=== PATIENT | male | born 1970 | race African-American/Black ===

== ENCOUNTER 2016-10-18 10:26 | Inpatient (IN) ==
[2016-10-18] MEDS ORDERED: LEVOFLOXACIN INJ 750 MG in PREMIX 1 EACH IV STA (10:44)
[2016-10-18] MEDS ORDERED: SODIUM CHLORIDE 0.9% 1,000 ML IV STA (10:44)
[2016-10-18] MEDS ORDERED: IBUPROFEN 800 MG TABLET PO STA (10:44)
--- NOTE | 2016-10-18 10:50 | Emergency Department Note ---
Arrival - Arrival Chief Complaint: Fever ED Nursing Triage Note: pt went to the clinic yesterday and was given mortin and told to come back friday. pt has dark foul smelling urine and a fever Mode of Arrival: Stretcher Limitations: No Limitations Source: Patient Time Seen by Provider: 10/18/16 10:44 - History of Present Illness HPI Narrative: This 46-year-old black male presents with complaints of shaking chills and fever for 5 days. He was seen and a local clinic yesterday and given aspirin for a viral syndrome and told to come back in 4 days time for check. However, fever has progressed and the patient is concerned of more significant problems then a virus. The patient denies nausea, vomiting, chest pain, shortness of breath, cough, sinus symptoms, dysuria, urgency, frequency, hematuria, diarrhea , headache, or body aches. He does report that his urine has become much darker and has a foul smell to it over the last several days as well. The patient states he is hypertensive but poorly compliant with medication. Of note , the patient is a heavy weekend drinker. Although febrile, he currently appears in no acute medical distress. Onset (ago): day(s) (Patient presents 5 days post onset of symptoms) Allergies/Adverse Reactions: Allergies Allergy/AdvReac Type Severity Reaction Status Date / Time No Known Allergies Allergy Unverified 10/18/16 10:37 Home Medications: Home Medications Medication Instructions Recorded Confirmed Type Ciprofloxacin HCl [Ciprofloxacin 500 mg PO BID 10/18/16 History Tab] Ibuprofen [Ibuprofen] 60 mg PO Q8H PRN 10/18/16 History Mupirocin [Mupirocin 2% Oint] 1 applic TOP BID 10/18/16 History Review of System - Review of System 12 point system: reviewed and no additional remarkable complaints except as stated - Review of System Constitutional: Present: as per HPI Head/Ears/Nose/Throat: Present: see HPI Respiratory: Present: as per HPI Cardiovascular: Present: as per HPI Gastrointestinal: Present: as per HPI Genitourinary male: Present: as per HPI Medical,Surgical,& Family Hx - Social History Smoking Status: Smoker, status unknown Frequency of Alcohol Use: Occasionally Type of Drug Use: None Exam Vital Signs: Vital Signs Temperature 102.2 F H 10/18/16 11:38 Pulse Rate 121 H 10/18/16 10:34 Respiratory Rate 20 09/08/17 10:40 Blood Pressure 205/121 10/18/16 10:34 O2 Sat by Pulse Oximetry 100 10/18/16 10:53 Course Course Narrative: GENERAL: Obese black male in no acute distress. HEENT: Normocephalic. No trauma. Moist mucous membranes. EOMI. PERRLA. ENT NML NECK: Supple. No adenopathy. CARDIAC: Regular. 1/4 faina, loud p2. Heart rate 120 CHEST: Clear to auscultation. No respiratory distress. O2 sat 96% ABDOMEN: Soft. Nontender. Umbilical hernia as well as evidence of possible fluid wave. Distant but active bowel sounds. EXTREMITIES: No trauma. Normal ROM. No pedal edema. SKIN: No diaphoresis. No rash. NEURO: Alert. Oriented 3. Motor, sensory, vibratory intact. No focal deficits. - Reevaluation(s) Reevaluation #1: Advised patient the need for hospitalization. - Consultations Consultation #1: Discussed with the hospitalist service who will admit for further evaluation treatment peer Results - Labs CBC & BMP: 10/18/16 11:56 10/18/16 11:56 Labs: I reviewed the laboratory noted the diffuse abnormalities most significant being the elevated lipase and CK. - Impressions EKG: Sinus tachycardia at 102 with left atrial enlargement. Diffuse ST flattening with T-wave inversion in the inferior leads. No acute injury pattern noted. - Diagnostic Findings Procedure: Chest x-ray: image reviewed by me, report reviewed by me (Minimal right sided atelectatic changes but no acute pathology noted), CT Abdomen and Pelvis: image reviewed by me, report reviewed by me (Fatty liver and umbilical hernia. No obvious pancreatic pathology.) Disposition Clinical Impression: Pancreatitis, Rhabdomyolysis, Abnormal cardiac enzymes, Fever Case discussed with: patient, patient's family Disposition: Still a Patient Condition: Guarded Time of Disposition: 14:27
[2016-10-18] MEDS ORDERED: hydrALAZINE 20 MG/1 ML VIAL IV STA (10:51)
[2016-10-18] MEDS ORDERED: LEVOFLOXACIN INJ 150 ML IV ONE (11:27)
[2016-10-18] MEDS ORDERED: IBUPROFEN 800 MG TABLET ONE (11:27)
[2016-10-18] MEDS ORDERED: hydrALAZINE 20 MG/1 ML VIAL ONE (11:27)
--- NOTE | 2016-10-18 11:30 | XRay Report ---
Exam: XR chest 2V Date: 10/18/2016 10:45 AM Indication: Shortness of breath fever Comparison: None Technical: PA lateral Findings: Mild prominence the cardiac silhouette. Minimal lytic change present. No obvious consolidating infiltrate or effusion clearly seen. The mediastinum is demonstrated with diffuse small calcified nodes present bilaterally no pneumothorax. Impression: 1. Minimal atelectatic change in the right midlung zone 2. No consolidating pulmonary infiltrates present. PROCEDURE INTERPRETED AT [facility] DEPARTMENT OF RADIOLOGY Final Report Signed by: Dr. Kam Coleman
[2016-10-18 12:11] LABS: Basophils % 0.2 % (0.0-0.8); Hematocrit 48.6 VOL% (42.0-52.0); Hemoglobin 15.8 GM/DL (14.0-18.0); Immature Granulocytes % 0.3 %; Immature Granulocytes Absolute 0.04 #; Lymphocytes # 1.3 10*3/uL (1.4-4.0); Lymphocytes % 10.9 % (21.2-54.2); Mean Corpuscular HGB Conc 32.5 GM/DL (32-36); Mean Corpuscular Hemoglobin 20 PG (27-34); Mean Corpuscular Volume 62.6 FL (87-102); Monocytes # 0.9 10*3/uL (0.11-0.8); Monocytes % 7.1 % (1.7-12.7); Neutrophils # 10.1 10*3/uL (1.4-7.4); Neutrophils % 81.5 % (38.7-73.9); Platelet Count 145 T/CUMM (130-400); Red Blood Count 7.76 MC/CUMM (3.8-5.5); Red Cell Distribution Width 18.3 % (9.3-17.3); White Blood Count 12.3 T/CUMM (4-12)
--- NOTE | 2016-10-18 12:17 | EKG Report ---
Stationary ECG Study [facility] ER Test Date: 10/18/2016 12:15:13 PM Pat Name: AUBREY ORTEZ Department: Room: Gender: M Strategic Manager: : 1970 Requested by: Carlos Alberto Urbina Order Number: [id number] Reading MD: GWEN BOOGIE Intervals [place] Rate: 102 P: 55 MS: 120 QRS: 48 QRSD: 78 T: -33 QT: 370 QTc: 429 Interpretive Statements SINUS TACHYCARDIA POSSIBLE LEFT ATRIAL ENLARGEMENT ST DEVIATION AND MODERATE T-WAVE ABNORMALITY, CONSIDER LATERAL ISCHEMIA ST DEVIATION AND MODERATE T-WAVE ABNORMALITY, CONSIDER INFERIOR ISCHEMIA Electronically Signed On 10-18-16 16:10:57 CDT by GWEN BOOGIE [email or web address]
[2016-10-18 12:27] LABS: INR 1.2; PT Patient Result 12.6 SECS
[2016-10-18 12:28] LABS: Giant Platelets Few; Hypochromasia 1+; Ovalocytes Slight; Platelet Estimate Normal
[2016-10-18 12:38] LABS: Ammonia 39 UMOL/L (11-32)
[2016-10-18 12:48] LABS: Lactic Acid 1.7 MMOL/L (0.4-2.0)
[2016-10-18 13:00] LABS: Alanine Aminotransferase 69 U/L (16-61); Albumin 3.6 G/DL (3.4-5.0); Alkaline Phosphatase 128 U/L (45-117); Amylase 76 U/L (25-115); Aspartate Amino Transferase 88 U/L (0-37); Blood Urea Nitrogen 23 MG/DL (7-18); Calcium 8.4 MG/DL (8.5-10.1); Glucose 135 MG/DL (74-106); Osmolality,Calculated 275.1 MOS/KG (273-304); Potassium 3.4 MMOL/L (3.5-5.1); Sodium 135 MMOL/L (136-145); Troponin I Only 0.075 NG/ML (0.00-0.045)
[2016-10-18] MEDS ORDERED: SODIUM CHLORIDE 0.9% 2,000 ML IV STA (13:17)
[2016-10-18] MEDS ORDERED: ONDANSETRON 4 MG/2 ML VIAL IV STA (13:17)
[2016-10-18] MEDS ORDERED: ONDANSETRON 4 MG/2 ML VIAL ONE (13:29)
[2016-10-18 13:53] LABS: Apearance,Urine CLOUDY (Clear); Bilirubin,Urine Negative (Negative); Blood, Urine Large mg/dL (Negative); Glucose,Urine (UA) Negative (Negative); Ketones,Urine Negative (Negative); Mucus,Urine Many /LPF (Occasional); Nitrite,Urine Negative (Negative); Protein,Urine >=500 MG/DL; Urine Color Yellow (Yellow); Urine Specific Gravity 1.029 (1.001-1.035); Urine Urobilinogen < 2.0 EU/DL (0.2-1.0)
--- NOTE | 2016-10-18 14:06 | CT Report ---
Exam: CT abdomen pelvis w con Date: 10/18/2016 1:17 PM Comparison: None Indication: Increased lipase fever Total DLP: 1401.9 mGy*cm Technical: No oral contrast was administered. Images were obtained from the lung bases to the iliac crest continuation through the pelvis with 100 cc of Omnipaque 350 with axial sagittal coronal imaging available for review. Dose reduction was performed with decreasing kv and mA and automated exposure Findings: Lung bases: No obvious infiltrates or effusions present. Liver and Spleen: Minimal fatty infiltration of the liver with mild in homogeneity present. Hepatic and portal veins are patent. Spleen is demonstrated without enlargement with small accessory splenule present. Gallbladder and Pancreas: Partially contracted gallbladder. The pancreas reveals no focal mass present. No ductal dilatation or cystic changes present. Adrenals: Unremarkable Kidneys: Both kidneys are equally perfused and demonstrate no evidence for obstructive uropathy. Stomach: Incomplete distended with air and fluid Retroperitoneum: No enlarged lymph nodes. Aorta and IVC: No obvious aneurysm aorta vessels are demonstrated with minimal atherosclerotic plaque. The IVC is unremarkable. Bowel and Mesentery: Some fluid-filled loops of small and large bowel are present. Fat-containing periumbilical hernia is present. No evidence of diverticulosis or diverticulitis the appendix is air and fluid filled without acute appendicitis. Pelvis: Bladder: Incompletely distended with fluid Fluid: No free fluid identified. Lymph nodes: No enlarged lymph nodes. Pelvic organs: Unremarkable Osseous structures: Degenerative change present at L4-5. The bony pelvis is otherwise intact. Facet arthropathy changes are present. Impression: 1. Fat-containing periumbilical hernia 2. Accessory splenule 3. Minimal fatty infiltration of liver 4. Degenerative spondylosis changes thoracolumbar spine. PROCEDURE INTERPRETED AT [facility] DEPARTMENT OF RADIOLOGY Final Report Signed by: Dr. Kam Coleman
--- NOTE | 2016-10-18 15:36 | Hospitalist History & Physical ---
Assessment and Plan (1) Hypertensive emergency, no CHF Status: Acute Assessment and plan: The patient is admitted hospital with hypertensive emergency, proteinuria, and rhabdomyolysis. The patient will receive aggressive IV hydration and IV antibiotics. We will obtain nephrology consultation. Current Visit: Yes (2) Rhabdomyolysis Status: Acute Current Visit: Yes (3) Proteinuria Status: Acute Current Visit: Yes History of Present Illness Chief complaint: Fever and weakness History of present illness: Mr. Bowman is a 46 year old male who has experienced fever and weakness over the last week. The patient's symptoms were associated with chills. The symptoms were moderate to severe, continuous and are worsening. The patient's fever improved somewhat with ibuprofen. The symptoms are associated with dark urine and muscle aches. The patient denies dysuria. The patient has had abdominal distention and reduced bowel movements. The patient does not complain of abdominal pain. The patient denies angina or shortness of breath. The patient has had some fecal incontinence. I discussed the case with Dr. Bautista in the emergency room we will admit the patient to intensive care unit for treatment of rhabdomyolysis. Home Medications Medication Instructions Recorded Confirmed Type No Known Home Medications [No 10/18/16 10/18/16 History Known Home Medications] Allergies Allergy/AdvReac Type Severity Reaction Status Date / Time No Known Allergies Allergy Unverified 10/18/16 10:37 Medical,Surgical,& Family Hx - Medical History Cardio: History of: Hypertension - Surgical History Surgical History: noncontributory (No previous surgeries) - Social History Smoking Status: Former smoker Have you smoked in the last 12 months: No Time spent discussing smoking cessation with patient: 3 to 10 minutes (4 minutes ) Frequency of Alcohol Use: Occasionally Type of Drug Use: None Marital Status: Lives With:: Spouse Functional capacity: independent ambulation 12 point system: reviewed and no additional remarkable complaints except as stated Exam - Constitutional Vitals: Period Temp Pulse Resp BP Sys/Dean Pulse Ox Last 24 Hr 102.2 F-102.2 F 121-121 20-20 205-205/121-121 96-100 Exam: Constitutional System: Mild distress. No tremulousness. Head: Normocephalic, atraumatic. Ears, Nose and Throat System: No evidence of Otitis or Mastoiditis. No epistaxis or discharge Eyes System: Pupils equal, round, and reactive. Extraocular muscles intact. Neck: Supple, without adenopathy, No jugular venous distention. No thyromegaly , neck mass, or prior surgery apparent. Respiratory System: Chest clear to auscultation. Cardiovascular System: Heart with regular rate and rhythm. No murmur. GI System: Abdomen soft, distended, nontender. Hypo-active bowel sounds present. Musculoskeletal System: limbs with no pedal edema. Full distal pulses. Neurological System: No discernable sensory deficit. No aphasia Psychiatric System: Conversation is rational Capillary Refill: less than 2 sec Results - Labs CBC & BMP: 10/18/16 11:56 10/18/16 11:56 Lab Results: I have reviewed the past 24 hour labs - Diagnostic Findings Procedure: CT Abdomen and Pelvis: report reviewed by me (No intra-abdominal abnormality)
[2016-10-18] MEDS ORDERED: ONDANSETRON 4 MG/2 ML VIAL IV PRN (15:58)
[2016-10-18] MEDS ORDERED: MORPHINE 2 MG/1 ML SYRINGE IV PRN (15:58)
[2016-10-18] MEDS ORDERED: ACETAMINOPHEN 325 MG TABLET PO PRN (15:58)
[2016-10-18] MEDS: niCARdipine INJ 25 MG in SODIUM CHLORIDE 0.9% 240 ML IV SCH ×2 (17:00→22:31)
[2016-10-18] MEDS: SODIUM BICARB INJ 100 MEQ in DEXTROSE 5% 1,000 ML IV SCH (17:00)
--- NOTE | 2016-10-18 17:24 | Event Note ---
Procedure note: Right central venous catheter via internal jugular approach. Indication: Cardene infusion and multiple IV medications Consent obtained from patient and signed consent on chart The patient was placed in the prone position and ultrasound guidance was used to identify the right internal jugular vein. The patient was prepped in a sterile fashion and sterile hand technique was utilized to approach the patient. Gwendolyn Santos nurse practitioner was in attendance to assist and used sterile hand technique. Ultrasound probe was used with sterile technique using plastic sleeve and the right internal jugular vein was entered after appropriate local anesthetic was applied. A 3 lm catheter was placed into the internal jugular vein using modified Seldinger technique. No apparent complications were observed. Chest x-ray was ordered following the procedure.
--- NOTE | 2016-10-18 17:56 | XRay Report ---
History: Central line placement Date: 10/18/2016 at 5:05 PM Study: Chest x-ray AP portable Comparison exam: 10/18/2016 at 10:59 AM The right IJ central line is well positioned with its tip over the atriocaval junction. There is no evidence of pneumothorax. The lungs are grossly clear for shallow breath. The cardiomediastinal silhouette is unchanged. Osseous structures are similar. Impression: No evidence of a pneumothorax following central line placement PROCEDURE INTERPRETED AT [facility] DEPARTMENT OF RADIOLOGY Final Report Signed by: Dr. Keyana Evans
[2016-10-18] MEDS: ENOXAPARIN 40 MG/0.4 ML SYRINGE SUBCUT SCH (18:20)
[2016-10-18] MEDS: cefTRIAXone 1,000 MG in SODIUM CHLORIDE 0.9% 100 ML IV SCH (18:20)
[2016-10-18] MEDS: PANTOPRAZOLE 40 MG TABLET PO SCH (18:20)
[2016-10-18] MEDS: amLODIPine 10 MG TABLET PO SCH (18:20)
[2016-10-19] MEDS: ACETAMINOPHEN 325 MG TABLET PO PRN ×6 (00:55→22:28)
[2016-10-19] MEDS: niCARdipine INJ 25 MG in SODIUM CHLORIDE 0.9% 240 ML IV SCH (04:01)
[2016-10-19] MEDS: SODIUM BICARB INJ 100 MEQ in DEXTROSE 5% 1,000 ML IV SCH ×3 (04:22→15:20)
[2016-10-19 06:10] LABS: Basophils % 0.2 % (0.0-0.8); Hematocrit 45.7 VOL% (42.0-52.0); Hemoglobin 14.8 GM/DL (14.0-18.0); Immature Granulocytes % 0.7 %; Immature Granulocytes Absolute 0.09 #; Lymphocytes # 1.6 10*3/uL (1.4-4.0); Lymphocytes % 11.9 % (21.2-54.2); Mean Corpuscular HGB Conc 32.4 GM/DL (32-36); Mean Corpuscular Hemoglobin 20 PG (27-34); Mean Corpuscular Volume 62.9 FL (87-102); Monocytes # 1.3 10*3/uL (0.11-0.8); Neutrophils % 77.2 % (38.7-73.9); Platelet Count 105 T/CUMM (130-400); Red Blood Count 7.27 MC/CUMM (3.8-5.5); Red Cell Distribution Width 17.4 % (9.3-17.3)
[2016-10-19 06:25] LABS: INR 1.2; PT Patient Result 13.1 SECS
[2016-10-19 06:26] LABS: Lactic Acid 1.2 MMOL/L (0.4-2.0)
[2016-10-19 06:32] LABS: Hypochromasia 1+
[2016-10-19 06:33] LABS: Microcytosis 1+; Ovalocytes Slight; Tear Drop Cells Slight
[2016-10-19 06:34] LABS: Platelet Estimate Decreased
--- NOTE | 2016-10-19 06:47 | Nephrology Consult Note ---
History of Present Illness Chief complaint: Rhabdomyolysis, fever History of present illness: Mr. Bowman is a 46 year old male patient who presents with fever and weakness for the past several days. His temperature got up to 105 through the night. He is now on a cooling blanket with a temperature of 101. Of note patient had been given a prescription for ibuprofen for his discomfort. Patient's CPK was noted to be elevated and had evidence of hematuria and proteinuria. Patient is now on a Cardene infusion due to hypertension through the night. Patient denies any shortness of breath or cough. There is no history of rashes or bruises. He denies any underlying medical conditions. At present he denies any pain or shortness of breath or discomfort. He mentions that he smokes half a pack cigarettes daily. As well as he denies any illicit drugs use. Nephrology is been consulted for renal failure and rhabdomyolysis. Home Medications Medication Instructions Recorded Confirmed Type No Known Home Medications [No 10/18/16 10/18/16 History Known Home Medications] Allergies Allergy/AdvReac Type Severity Reaction Status Date / Time No Known Allergies Allergy Unverified 10/18/16 10:37 Medical,Surgical,& Family Hx - Medical History Cardio: History of: Hypertension - Surgical History Neurologic Surgeries: Patient denies: Neurologic Surgery - Family History Family History: Reports;: Family Cancer (mother) Denies;: Family Anesthesia Reaction, Family Diabetes, Family Heart Disease, Family Hematology, Family Hypertension, Family Psychiatric Problems, Family Stroke, Additional Family History - Social History Smoking Status: Former smoker Frequency of Alcohol Use: Occasionally Type of Drug Use: None Review of Systems Constitutional: fever(s), no anorexia, no lethargy Gastrointestinal: dyspepsia, no cramping, no dysphagia Genitourinary: no difficulty urinating, no dysuria Hematologic/Lymphatic: no easy bleeding Exam - Vital Signs Vital signs: Period Temp Pulse Resp BP Sys/Dean Pulse Ox Last 24 Hr 98.7 F-105.9 F 81-124 18-39 117-205/77-121 93-100 - General Appearance General appearance: well-developed, well-nourished EENT: ATNC Neck: supple Respiratory: clear Cardiology: regular rate, regular rhythm Gastrointestinal: normoactive bowel sounds, no tenderness Integumentary: no rash Neurologic: alert and oriented x3 Musculoskeletal: no deformities, no clubbing Psychiatric: mood/affect appropriate, cooperative Results - Labs CBC & BMP: 10/19/16 05:11 10/18/16 11:56 Assessment and Plan (1) Rhabdomyolysis Status: Acute Assessment and plan: Agree with IV fluids. Continue with serial BMP. Current Visit: Yes (2) Proteinuria Status: Acute Assessment and plan: Complement levels. UPEP Hepatitis panel. MARIAJOSE Rheumatoid factor Anti-GBM antibody Current Visit: Yes (3) Hypertensive emergency, no CHF Status: Acute Current Visit: Yes (4) Hematuria Status: Acute Current Visit: Yes (5) Fever Status: Acute Assessment and plan: We will also check a West Nile Current Visit: Yes (6) Pancreatitis Status: Acute Current Visit: Yes
[2016-10-19 06:55] LABS: Calcium 7.7 MG/DL (8.5-10.1); Magnesium 1.6 MG/DL (1.8-2.4); Osmolality,Calculated 269.2 MOS/KG (273-304); Potassium 3.1 MMOL/L (3.5-5.1)
[2016-10-19] MEDS ORDERED: niCARdipine INJ 50 MG in SODIUM CHLORIDE 0.9% 230 ML IV SCH (07:00)
[2016-10-19 07:17] LABS: Troponin I Only 0.082 NG/ML (0.00-0.045)
--- NOTE | 2016-10-19 07:36 | EKG Report ---
Stationary ECG Study [facility] Test Date: 10/19/2016 7:37:40 AM Pat Name: AUBREY ORTEZ Department: Room: 108 Gender: M Msw: WALKER : 1970 Requested by: Zaheer Barone Order Number: [id number] Reading MD: GWEN BOOGIE Intervals [place] Rate: 112 P: 57 AK: 142 QRS: 34 QRSD: 86 T: -49 QT: 337 QTc: 403 Interpretive Statements SINUS TACHYCARDIA POSSIBLE RIGHT ATRIAL ENLARGEMENT POSSIBLE LEFT ATRIAL ENLARGEMENT ST DEVIATION AND MODERATE T-WAVE ABNORMALITY, CONSIDER LATERAL ISCHEMIA ST DEVIATION AND MODERATE T-WAVE ABNORMALITY, CONSIDER INFERIOR ISCHEMIA Electronically Signed On 10-19-16 12:30:15 CDT by GWEN BOOGIE [email or web address]
[2016-10-19 07:39] LABS: Calcium 7.6 MG/DL (8.5-10.1); Osmolality,Calculated 267.4 MOS/KG (273-304)
[2016-10-19 08:32] LABS: HIV Antigen/Antibody Result Nonreactive (Nonreactive)
[2016-10-19] MEDS ORDERED: MAGNESIUM SULF RIDER 2 GM in PREMIX 1 EACH IV PRN (08:33)
[2016-10-19] MEDS ORDERED: MAGNESIUM SULF RIDER 4 GM in PREMIX 1 EACH IV PRN (08:33)
[2016-10-19 08:37] LABS: Hepatitis A Ab IgM Quant 0.04 Index; Hepatitis A Ab IgM Result Negative (Negative); Hepatitis B Core IgM Quant 0.11 Index; Hepatitis B Core IgM Result Negative (Negative); Hepatitis B Surface Ag Quant < 0.10 Index; Hepatitis B Surface Ag Result Negative (Negative); Hepatitis C Virus Ab Quant 0.05 Index; Hepatitis C Virus Ab Result Negative (Negative)
[2016-10-19] MEDS: POTASSIUM CHLORIDE 20 MEQ TABLET PO SCH ×2 (08:45→22:26)
[2016-10-19] MEDS: PANTOPRAZOLE 40 MG TABLET PO SCH (08:45)
[2016-10-19] MEDS: amLODIPine 10 MG TABLET PO SCH (08:45)
[2016-10-19] MEDS ORDERED: LEVOFLOXACIN INJ 500 MG in PREMIX 1 EACH IV SCH (09:00)
--- NOTE | 2016-10-19 10:26 | XRay Report ---
History: Shortness of breath Date: 10/19/2016 Study: Chest x-ray AP portable Comparison exam: 10/18/2016 The right IJ central line remains in satisfactory position. The cardiomediastinal silhouette and pulmonary vasculature are unremarkable. The lungs and pleural spaces remain clear. Osseous structures are unchanged. Impression: No adverse interval change compared to the previous study PROCEDURE INTERPRETED AT [facility] DEPARTMENT OF RADIOLOGY Final Report Signed by: Dr. Keyana Evans
--- NOTE | 2016-10-19 11:10 | Hospitalist Progress Note ---
Assessment and Plan (1) Hypertensive emergency, no CHF Status: Acute Assessment and plan: The patient is admitted hospital with hypertensive emergency, proteinuria, and rhabdomyolysis. The patient will continue bicarbonate IV hydration and IV antibiotics. We will recheck electrolytes tomorrow and likely discontinue bicarbonate infusion at that time. Potassium is being supplemented. Current Visit: Yes (2) Rhabdomyolysis Status: Acute Current Visit: Yes (3) Proteinuria Status: Acute Current Visit: Yes Hospitalist: Subjective Interval history: Mr. Bowman does not complain of pain. Abdomen soft and less distended today. The patient tolerated breakfast. I coordinated care with Dr. So. Exam - Constitutional Vitals: Period Temp Pulse Resp BP Sys/Dean Pulse Ox Last 24 Hr 98.7 F-105.9 F 81-124 10-39 113-181/67-116 93-100 Exam: Constitutional System: No distress. No tremulousness. Head: Normocephalic, atraumatic. Ears, Nose and Throat System: No evidence of Otitis or Mastoiditis. No epistaxis or discharge Eyes System: Pupils equal, round, and reactive. Extraocular muscles intact. Neck: Supple, without adenopathy, No jugular venous distention. No thyromegaly , neck mass, or prior surgery apparent. Respiratory System: Chest clear to auscultation. Cardiovascular System: Heart with regular rate and rhythm. No murmur. GI System: Abdomen soft, nontender. Hypo-active bowel sounds present. Musculoskeletal System: limbs with no pedal edema. Full distal pulses. Neurological System: No discernable sensory deficit. No aphasia Psychiatric System: Conversation is rational Capillary Refill: less than 2 sec Results - Labs CBC & BMP: 10/19/16 05:11 10/19/16 07:04 Lab Results: I have reviewed the past 24 hour labs
[2016-10-19] MEDS: NIFEdipine 10 MG CAPSULE PO PRN ×2 (11:50→17:50)
[2016-10-19 13:04] LABS: Calcium 7.6 MG/DL (8.5-10.1); Osmolality,Calculated 267.4 MOS/KG (273-304); Potassium 3.2 MMOL/L (3.5-5.1)
[2016-10-19] MEDS ORDERED: LOPERAMIDE 2 MG CAPSULE PO PRN (14:23)
[2016-10-19] MEDS: cefTRIAXone 1,000 MG in SODIUM CHLORIDE 0.9% 100 ML IV SCH (15:30)
[2016-10-19] MEDS: ENOXAPARIN 40 MG/0.4 ML SYRINGE SUBCUT SCH (17:50)
[2016-10-19 19:30] LABS: Calcium 7.3 MG/DL (8.5-10.1); Osmolality,Calculated 267.4 MOS/KG (273-304)
[2016-10-20] MEDS: NIFEdipine 10 MG CAPSULE PO PRN (08:08)
[2016-10-20] MEDS: POTASSIUM CHLORIDE 20 MEQ TABLET PO SCH ×4 (08:09→20:43)
[2016-10-20] MEDS: PANTOPRAZOLE 40 MG TABLET PO SCH (08:09)
[2016-10-20] MEDS: ACETAMINOPHEN 325 MG TABLET PO PRN ×2 (08:10→20:43)
[2016-10-20] MEDS: amLODIPine 10 MG TABLET PO SCH (08:11)
--- NOTE | 2016-10-20 10:51 | Nephrology Progress Note ---
Nephrology - PN: Subj Interval history: Patient is resting comfortably. States he feels better than he did yesterday. However, continues to have temperature spikes. Blood cultures urine cultures have been negative. Renal function is normal. Exam (PN)-Nephrology - Vital Signs Vital signs: Period Temp Pulse Resp BP Sys/Dean Pulse Ox Last 24 Hr 98.0 F-216.7 F 102-117 12-32 131-179/75-101 91-100 - General Appearance General appearance: well-developed, well-nourished EENT: ATNC Neck: supple Respiratory: clear Cardiology: no edema, regular rate, regular rhythm Gastrointestinal: normoactive bowel sounds, no tenderness Neurologic: alert and oriented x3 Musculoskeletal: no clubbing Psychiatric: mood/affect appropriate, cooperative - Lab 10/19/16 05:11 10/19/16 18:32 Most recent lab results Calcium 7.3 MG/DL (8.5-10.1) L 10/19/16 18:32 Magnesium 1.6 MG/DL (1.8-2.4) L 10/19/16 05:11 Assessment and Plan (1) Rhabdomyolysis Status: Acute Assessment and plan: Agree with IV fluids. Continue IV fluids. BMP in a.m. Liver panel in a.m. Current Visit: Yes (2) Proteinuria Status: Acute Assessment and plan: Complement levels. UPEP Hepatitis panel is normal. HIV is negative. MARIAJOSE Rheumatoid factor Anti-GBM antibody Current Visit: Yes (3) Hypertensive emergency, no CHF Status: Acute Current Visit: Yes (4) Hematuria Status: Acute Current Visit: Yes (5) Fever Status: Acute Assessment and plan: No immediate source for fevers. Cultures have been negative. Initial studies have been negative. Recommend consultation with infectious disease on tomorrow. Current Visit: Yes (6) Pancreatitis Status: Resolved Current Visit: Yes
--- NOTE | 2016-10-20 11:17 | Hospitalist Progress Note ---
Assessment and Plan - Time spent with patient Time spent with patient: Less than 30 minutes (1) Rhabdomyolysis Status: Acute Assessment and plan: 46-year-old -[place] male admitted by the hospitalist service on 2016 with hypertensive emergency, proteinuria, and rhabdomyolysis. He is received aggressive IV hydration and IV antibiotics. He has unexplained high fevers up to 103.8 at the highest. This morning he had 102.3. His sodium and potassium are low today. We will switch up his IV fluids and supplement his potassium. His blood pressure is up as well so will evaluate his blood pressure medications. Patient is on daptomycin and Rocephin and will continue these. Will consult infectious disease in the a.m. for evaluation of unexplained fevers. Will check his liver panel and CPK in the a.m. His West Nile is pending. Dr. So from nephrology is also following. Discussed with Dr. Barone. Current Visit: Yes (2) Proteinuria Status: Acute Current Visit: Yes (3) Hypertensive emergency, no CHF Status: Acute Current Visit: Yes (4) Fever Status: Acute Current Visit: Yes Hospitalist: Subjective Interval history: Patient looks and feels well. He states he feels better than he has in a while. He is tolerating a diet urinating and defecating well. Exam - Constitutional Vitals: Period Temp Pulse Resp BP Sys/Dean Pulse Ox Last 24 Hr 98.0 F-216.7 F 102-117 12-32 131-179/75-96 91-100 Exam: 46-year-old -[place] male, no acute distress, alert and oriented Chest clear CV regular rate rhythm Abdomen soft and nontender Extremities no edema Results - Labs CBC & BMP: 10/19/16 05:11 10/19/16 18:32 Lab Results: I have reviewed the past 24 hour labs
[2016-10-20] MEDS: SODIUM CHLORIDE 0.9% 1,000 ML IV SCH ×2 (12:51→23:59)
[2016-10-20] MEDS: LEVOFLOXACIN 500 MG TABLET PO SCH (15:18)
[2016-10-20] MEDS: ENOXAPARIN 40 MG/0.4 ML SYRINGE SUBCUT SCH (18:09)
[2016-10-21] MEDS: SODIUM CHLORIDE 0.9% 1,000 ML IV SCH ×4 (03:37→22:53)
[2016-10-21] MEDS: POTASSIUM CHLORIDE 20 MEQ TABLET PO SCH ×2 (03:38→09:09)
[2016-10-21 07:07] LABS: Calcium 8.3 MG/DL (8.5-10.1); Magnesium 1.9 MG/DL (1.8-2.4); Osmolality,Calculated 264.4 MOS/KG (273-304); Potassium 4.6 MMOL/L (3.5-5.1)
[2016-10-21 07:11] LABS: Troponin I Only 0.026 NG/ML (0.00-0.045)
[2016-10-21 07:26] LABS: Bilirubin,Direct 0.52 MG/DL (0.0-0.20); Bilirubin,Indirect 1.2 MG/DL (0.0-1.0); Bilirubin,Total 1.7 MG/DL (0.2-1.0); Total Protein 6.9 G/DL (6.4-8.3)
[2016-10-21] MEDS: amLODIPine 10 MG TABLET PO SCH (09:08)
[2016-10-21] MEDS: PANTOPRAZOLE 40 MG TABLET PO SCH (09:09)
--- NOTE | 2016-10-21 09:33 | Physician Query Form ---
CLICK EDIT DOCUMENT TO SELECT QUERY ANSWER --> OK --> SIGN Karely Jimenes RN Clinical [employer] Girl W) [phone] (f) [phone] [email or web address] PROVIDERS: Make your selection(s) from the choices in EACH section by typing an "x" and enter comments in the comment section. Please use your independent medical judgment in providing your response. This request does not imply that any particular answer is desired or expected. CLINICAL INDICATORS: (Providers should not edit this section) Based on documentation of "Urine became much darker and has a foul smell to it over last several days" "Heavy weekend drinker" Creatinine from 1.5 to 1.00. Grr form 76 to 136. Monitored with serial lab checks. Treated with NS boluses. Clarify which of the following most accurately represents the patient's renal status: (x ) Acute kidney injury (non-traumatic) ( ) Acute renal failure ( ) Acute renal failure with underlying Chronic Kidney Disease (CKD) - please provide stage below ( ) Acute renal failure with pathological renal lesion ( ) Acute renal failure with necrosis ( ) tubular ( ) medullary ( ) cortical ( ) CKD - please provide stage below ( ) End Stage Renal Disease ( ) Acute interstitial nephritis ( ) Hepatorenal syndrome ( ) Other, please specify: ( ) Clinically unable to determine Chronic Kidney Disease Stages Source: National Kidney Disease Foundation ( ) Stage I (eGFR > or = 90) ( ) Stage II (eGFR 60 - 89) ( ) Stage III (eGFR 30 - 59) ( ) Stage IV (eGFR 15 - 29) ( ) Stage V (eGFR < 15 or dialysis) COMMENTS: PLEASE ALSO DOCUMENT RESPONSE IN PROGRESS NOTES AND/OR DISCHARGE SUMMARY Use of terms such as suspected, likely, or probable (associated with a specific diagnosis that is being evaluated, monitored, or treated as if it exists) are acceptable and can be restated in the discharge summary if not ruled out. MTDD
[2016-10-21] MEDS ORDERED: POTASSIUM CHLORIDE 20 MEQ TABLET PO PRN (09:51)
--- NOTE | 2016-10-21 14:21 | Nephrology Progress Note ---
Nephrology - PN: Subj Interval history: Patient is resting comfortably. States he feels better than he did yesterday. However, continues to have temperature spikes. Blood cultures urine cultures have been negative. Renal function is normal. 10/21/2016. The patient is resting comfortably. No acute changes. No fevers or chills. Patient serum creatinine is normal at 0.8. No new recommendations will sign off please call if needed. Exam (PN)-Nephrology - Vital Signs Vital signs: Period Temp Pulse Resp BP Sys/Dean Pulse Ox Last 24 Hr 97.1 F-101.3 F 87-112 16-22 143-157/72-97 91-100 - General Appearance General appearance: well-developed, well-nourished EENT: ATNC Cardiology: regular rate, regular rhythm Gastrointestinal: normoactive bowel sounds Neurologic: alert and oriented x3 Musculoskeletal: no deformities Psychiatric: mood/affect appropriate - Lab 10/19/16 05:11 10/21/16 06:17 Most recent lab results Calcium 8.3 MG/DL (8.5-10.1) L 10/21/16 06:17 Magnesium 1.9 MG/DL (1.8-2.4) 10/21/16 06:17 Assessment and Plan (1) Rhabdomyolysis Status: Acute Assessment and plan: Agree with IV fluids. And is continuing to show resolution. Current Visit: Yes (2) Proteinuria Status: Acute Assessment and plan: Appears to be more likely due to underlying rhabdomyolysis that is resolving. Moreover kidney function is improving. Current Visit: Yes (3) Hypertensive emergency, no CHF Status: Acute Current Visit: Yes (4) Hematuria Status: Acute Current Visit: Yes (5) Fever Status: Acute Assessment and plan: More likely a drug fever as patient has not had any other fevers since stopping antibiotics. Cultures have been negative. Initial studies have been negative. Current Visit: Yes (6) Pancreatitis Status: Resolved Current Visit: Yes
--- NOTE | 2016-10-21 14:42 | Infectious Disease Consult ---
Assessment and Plan (1) Fever Status: Acute Assessment and plan: Suspect viral cause. He has no focus of bacterial infection including no pneumonia, no UTI, no bloodstream infection. He does have thrombocytopenia today and that could be with viral illnesses including West Nile virus. Rickettsial illnesses could cause this as well but patient seems to have defervesced without specific treatment for rickettsial infections. Recommendations: 1. Check West Nile virus serologies 2. Discontinue daptomycin 3. Can continue levofloxacin for now although I am inclined to stop it 4. If fever recurs over the next 24 hours, we will send rickettsial serologies and put patient on doxycycline Thank you very much for the consult. Will follow. Discussed with at bedside Current Visit: Yes (2) Hypertensive emergency, no CHF Status: Acute Current Visit: Yes (3) Rhabdomyolysis Status: Acute Current Visit: Yes History of Present Illness Chief complaint: Fever History of present illness: Mr. Bowman is a 46 year old male who had no malaise known medical history prior to admission to hospital. He is well until about a week ago when he started having chills body aches and fever. He thought he was having the flu however he continued to worsen and so his encouraged him to come to the hospital tonight she called ambulance for him. He never had any sore throat runny nose cough or sputum production. He was anorexic but now his appetite is good. No nausea vomiting or diarrhea. Patient's main problem has been soreness and weakness however that has improved somewhat. On admission was found to have rhabdomyolysis with total CPK more than 1000. He has been persistently febrile but may have defervesced since last night. He was getting ceftriaxone but that was stopped yesterday after it was felt that it may have been causing the fever. The ceftriaxone was replaced with daptomycin which she started this morning. Patient also levofloxacin. I am asked to assist with management. Of note the patient has not traveled recently and will contacts. He denied exposures to insects including mosquitoes and ticks. He drives a dump truck. Home Medications Medication Instructions Recorded Confirmed Type No Known Home Medications [No 10/18/16 10/18/16 History Known Home Medications] Allergies Allergy/AdvReac Type Severity Reaction Status Date / Time No Known Allergies Allergy Unverified 10/18/16 10:37 12 point system: reviewed and no additional remarkable complaints except as stated (Per HPI) Medical,Surgical,& Family Hx - Medical History Cardio: History of: Hypertension - Surgical History Neurologic Surgeries: Patient denies: Neurologic Surgery - Family History Family History: Reports;: Family Cancer (mother) Denies;: Family Anesthesia Reaction, Family Diabetes, Family Heart Disease, Family Hematology, Family Hypertension, Family Psychiatric Problems, Family Stroke, Additional Family History - Social History Smoking Status: Former smoker Frequency of Alcohol Use: Occasionally Type of Drug Use: None Infectious Disease Exam H&P - Constitutional Vitals: Vital Signs Temp Pulse Resp BP Pulse Ox 97.7 F 88 20 157/96 97 10/21/16 11:56 10/21/16 11:56 10/21/16 11:56 10/21/16 11:56 10/21/16 11:56 Intake and Output 10/20/16 10/21/16 10/21/16 23:59 07:59 15:59 Intake Total 1660 / 1660 1120 / 1120 1360 / 1360 Output Total 300 / 300 500 / 500 250 / 250 Balance 1360 / 1360 620 / 620 1110 / 1110 Intake: IV 1100 / 1100 1000 / 1000 1000 / 1000 Cubicin 500 mg In Ns 100 100 / 100 ml @ 200 mls/hr IV Q24H TARAN Rx#:[id number] Ns 1,000 ml @ 150 mls/hr 1000 / 1000 1000 / 1000 1000 / 1000 IV .[id number] TARAN Rx#: [id number] Oral 560 / 560 120 / 120 360 / 360 Output: Urine 300 / 300 500 / 500 250 / 250 Stool 0 / 0 Other: Voiding Method Urinal Urinal # Bowel Movements 1 Weight 106.277 kg Patient Weight 10/21/16 23:59 Weight 106.277 kg Exam: General: Patient looks a bit unwell to me, but insisted he felt fine and was only tired because he did not get sleep last night HEENT: Mucous membranes pink and moist, anicteric acyanotic, HAZEL, no oropharyngeal exudates Neck: Supple, no thyroid gland enlargement, no lymphadenopathy Respiratory system: Breath sounds vesicular, no crepitations or wheezes Cardiovascular: Normal S1 and S2, no murmurs appreciated Abdomen: Normal bowel sounds, soft nontender throughout, no organomegaly or mass Genitourinary: No suprapubic pain or bladder distention Extremities: no edema Skin: No rash Reports - Labs CBC & BMP: 10/19/16 05:11 10/21/16 06:17 Labs: Laboratory Results - last 24 hr 10/19/16 10/21/16 10/21/16 07:04 06:17 06:17 Sodium 133 L Potassium 4.6 Chloride 103 Carbon Dioxide 22 Anion Gap 12.6 BUN 10 Creatinine 0.80 GFR Calculation 162 BUN/Creatinine Ratio 12.00 Glucose 93 Calculated Osmolality 264.4 L Calcium 8.3 L Magnesium 1.9 Total Bilirubin Direct Bilirubin Indirect Bilirubin AST ALT Alkaline Phosphatase Total Creatine Kinase 464 H D Troponin I 0.026 Total Protein Albumin MARIAJOSE Screen Negative (<1:160) 10/21/16 06:17 Sodium Potassium Chloride Carbon Dioxide Anion Gap BUN Creatinine GFR Calculation BUN/Creatinine Ratio Glucose Calculated Osmolality Calcium Magnesium Total Bilirubin 1.70 H Direct Bilirubin 0.520 H Indirect Bilirubin 1.2 H AST 98 H ALT 91 H Alkaline Phosphatase 93 Total Creatine Kinase Troponin I Total Protein 6.9 Albumin 3.0 L MARIAJOSE Screen - Reports Microbiology: Microbiology 10/18/16 11:45 Blood Culture - Preliminary Blood No growth at 3 days 10/18/16 11:45 Blood Culture - Preliminary Blood No growth at 3 days 10/18/16 17:46 Urine Culture - Final Urine,Clean Catch No Growth at 48 hours. 10/18/16 16:00 MRSA Surveillance Culture - Final Nares - Both Nares (Mrsa screen) No MRSA isolated. - Diagnostic Findings Procedure: Chest x-ray: image reviewed by me, report reviewed by me (No consultation or effusion), CT Abdomen and Pelvis: report reviewed by me ( Unremarkable study)
--- NOTE | 2016-10-21 15:21 | Hospitalist Progress Note ---
Hospitalist: Subjective Interval history: Patient was admitted with fever and rhabdomyolysis, both have improved Exam - Constitutional Vitals: Period Temp Pulse Resp BP Sys/Dean Pulse Ox Last 24 Hr 97.1 F-101.3 F 87-112 16-22 143-157/72-97 91-100 Exam: General: [No Acute Distress] HEENT: [Normocephalic, atraumatic, Extra ocular movements intact] Neck: [Supple, No JVD] Chest: [Clear to auscultation B/L] CV: [S1 + S2 audible without murmur, gallop or rub] Abd: [soft, NT, Non-distended, BS +] Ext: [No edema] Skin: [No purpura, bruising or rash] Rheumatologic: [No Joint deformities] Neurologic: [Strength 5/5 all extremities, no gross sensory deficits] Results - Labs CBC & BMP: 10/19/16 05:11 10/21/16 06:17 - Impressions Assessment and Plan: Fever Status: Acute Current Visit: Yes Seen by ID and felt to be due to a viral illness, West Nile serologies were ordered Rhabdomyolysis Status: Acute Assessment and plan: CPK has improved Current Visit: Yes Essential hypertension Status: Acute Current Visit: Yes Hematuria and proteinuria Status: Acute Current Visit: Yes Nephrology is following
[2016-10-21] MEDS: ENOXAPARIN 40 MG/0.4 ML SYRINGE SUBCUT SCH (16:06)
[2016-10-21] MEDS: LISINOPRIL 10 MG TABLET PO SCH (16:07)
[2016-10-21] MEDS: LEVOFLOXACIN 500 MG TABLET PO SCH (16:07)
[2016-10-21] MEDS ORDERED: DAPTOmycin 500 MG in SODIUM CHLORIDE 0.9% 50 ML IV SCH (18:00)
[2016-10-22] MEDS: SODIUM CHLORIDE 0.9% 1,000 ML IV SCH ×3 (05:47→19:15)
[2016-10-22 09:20] LABS: Basophils # 0.1 10*3/uL (0.0-0.2); Basophils % 0.6 % (0.0-0.8); Eosinophils # 0.3 10*3/uL (0.0-0.87); Hematocrit 41.5 VOL% (42.0-52.0); Hemoglobin 13.3 GM/DL (14.0-18.0); Immature Granulocytes % 0.6 %; Immature Granulocytes Absolute 0.06 #; Lymphocytes # 1.2 10*3/uL (1.4-4.0); Lymphocytes % 12.2 % (21.2-54.2); Mean Corpuscular Hemoglobin 21 PG (27-34); Mean Corpuscular Volume 63.9 FL (87-102); Monocytes # 0.8 10*3/uL (0.11-0.8); Monocytes % 7.9 % (1.7-12.7); Neutrophils # 7.6 10*3/uL (1.4-7.4); Neutrophils % 75.7 % (38.7-73.9); Platelet Count 123 T/CUMM (130-400); Red Blood Count 6.49 MC/CUMM (3.8-5.5); Red Cell Distribution Width 15.8 % (9.3-17.3)
[2016-10-22] MEDS: PANTOPRAZOLE 40 MG TABLET PO SCH (09:24)
[2016-10-22] MEDS: LISINOPRIL 10 MG TABLET PO SCH (09:24)
[2016-10-22] MEDS: amLODIPine 10 MG TABLET PO SCH (09:24)
[2016-10-22 09:52] LABS: Calcium 8.4 MG/DL (8.5-10.1); Osmolality,Calculated 266.2 MOS/KG (273-304); Potassium 4.2 MMOL/L (3.5-5.1)
[2016-10-22] MEDS ORDERED: LISINOPRIL 10 MG TABLET PO SCH (10:58)
--- NOTE | 2016-10-22 15:36 | Hospitalist Progress Note ---
Hospitalist: Subjective Interval history: Patient was admitted with rhabdomyolysis. He is awake alert and comfortable Exam - Constitutional Vitals: Period Temp Pulse Resp BP Sys/Dean Pulse Ox Last 24 Hr 97.1 F-99.0 F 82-92 18-20 128-154/86-97 20-98 Exam: General: [No Acute Distress] HEENT: [Normocephalic, atraumatic, Extra ocular movements intact] Neck: [Supple, No JVD] Chest: [Clear to auscultation B/L] CV: [S1 + S2 audible without murmur, gallop or rub] Abd: [soft, NT, Non-distended, BS +] Ext: [No edema] Skin: [No purpura, bruising or rash] Rheumatologic: [No Joint deformities] Neurologic: [Strength 5/5 all extremities, no gross sensory deficits] Results - Labs CBC & BMP: 10/22/16 08:40 10/22/16 08:40 - Impressions Assessment and Plan: Fever Status: Acute Current Visit: Yes Seen by ID and felt to be due to a viral illness, West Nile serologies were ordered. Fever has improved Rhabdomyolysis Status: Acute Assessment and plan: CPK has improved Current Visit: Yes Essential hypertension Status: Acute Current Visit: Yes Hematuria and proteinuria Status: Acute Current Visit: Yes This was evaluated by nephrology
[2016-10-22] MEDS: LEVOFLOXACIN 500 MG TABLET PO SCH (16:04)
[2016-10-22] MEDS: ENOXAPARIN 40 MG/0.4 ML SYRINGE SUBCUT SCH (16:05)
--- NOTE | 2016-10-22 16:15 | Infectious Disease Progress ---
Assessment and Plan (1) Fever Status: Acute Assessment and plan: Suspect viral cause. He has no focus of bacterial infection including no pneumonia, no UTI, no bloodstream infection. Recommendations: Can complete 5 days of empiric levofloxacin therapy, and follow -up with West Nile serologies in outpatient setting. I will sign off now. Call again as needed. Current Visit: Yes (2) Hypertensive emergency, no CHF Status: Acute Current Visit: Yes (3) Rhabdomyolysis Status: Acute Current Visit: Yes Infectious Disease - PN: Subj Interval history: Patient says he is feeling good, he has not had any recurrence of fever for almost 48 hours. Says his appetite is good no nausea vomiting or diarrhea, no cough or shortness of breath. Infectious Disease Exam (PN) - Constitutional Vitals: Temp Pulse Resp BP Pulse Ox 97.7 F 93 H 20 145/92 98 10/22/16 15:45 10/22/16 15:45 10/22/16 15:45 10/22/16 15:45 10/22/16 15:45 Exam: General appearance: no acute distress - Eye Eye exam: Present: EOMI. no icterus Pupils: Present: HAZEL - ENT ENT exam: no oral exudates - Respiratory Respiratory exam: vesicular BS, no crepitations or wheezes - Cardiovascular Cardiovascular exam: regular rate and rhythm, no murmurs - GI/Abdominal GI/Abdominal exam: normal bowel sounds, soft, non-tender, no organomegaly or mass - Extremities Exam Extremities exam: no edema - Skin Skin exam: no rash Results - Labs CBC & BMP: 10/22/16 08:40 10/22/16 08:40 Lab Results: I have reviewed the past 24 hour labs
[2016-10-23] MEDS: SODIUM CHLORIDE 0.9% 1,000 ML IV SCH (01:50)
[2016-10-23 08:44] VITALS: BP 134/86
[2016-10-23] MEDS: amLODIPine 10 MG TABLET PO SCH (09:23)
[2016-10-23] MEDS: PANTOPRAZOLE 40 MG TABLET PO SCH (09:24)
--- NOTE | 2016-10-23 09:59 | Discharge Summary ---
<Gwendolyn Santos - Last Filed: 10/23/16 09:32> Hospital Course - Hospital Course Hospital Course: Mr Bowman w/PMHx hypertension presented to the ED on 10/18/16 for further evaluation of fever and chills x5 days, and with heavy weekend drinker yasy. IN ED: LABS SIGnificant for: WBC 12.3, BUN 23, Creatinine 1.50, Glucose 135, AST 88, ALT 89, Alkaline Phosphatase 128, Ammonia 39, CPK >1000, CXR: no infiltrates, minimal atelectatic changes. Abd/Pelvic CT: fat-containing periumbilical hernia, accessory splenule, mininmal fatty infiltrate of liver. Hospital Medicine consulted for admission for treatment of hypertensive emergency, proteinuria, and rhabdomyolysis, Central line placed, IV hydrations and antibiotics started, consulted nephrology who did extensive workup for proteinuria, and then signed off. Nephrology noted with hydration, renal function greatly improved and no further recommendations were made. Infectious disease consulted: suspects cause of illness to be viral related; Flu is negative. hepatitis panel negative. Hiv negative. Recommended to complete 5 days of empiric levofloxacin therapy and follow up with Infectious Disease for West Nile serology results in outpatient setting. Today 10/23/16 Patients symptoms have improved. Fever and rhabdomyolysis have resolved. Rhabdomyolysis was likely the complication from fever from viral illness that has resolved, repeat labs have improved. He is feeling better and he is stable and has met the criteria for the plan of discharge home. West Nile serology has been negative he will need to follow up with primary care physician. Patient was not taking any medicines at home. He also had hypertensive urgency with significantly elevated blood pressure. His blood pressure is now controlled on medicine which she will continue after discharge. The patient has reached maximal hospital benefit and being discharged home in improved and stable condition. Total discharge time 43 minutes. Discharge Plan - Discharge Medications New amLODIPine [Norvasc] 10 mg PO DAILY #30 tablet Lisinopril [Prinivil] 15 mg PO DAILY #30 tablet - Follow Up or Referral - Forms/Instructions Exam - Constitutional Vitals: Period Temp Pulse Resp BP Sys/Dean Pulse Ox Last 24 Hr 97.1 F-98.7 F 80-93 16-20 134-157/86-92 94-100 Discharge Results Procedures and tests throughout hospitalization: Pending Orders 10/21/16 14:53 West Nile Virus Ab,IgG/M, S Stat Labs on day of discharge: Labs from last 24 hours 10/19/16 10/19/16 07:04 07:04 Glomerular Base Mem IgG < 0.2 West Nile RNA (RT-PCR) Negative DS: Provider Date of admission: 10/18/16 14:39 Primary care physician: . No PCP Attending physician on admission: Zaheer Barone MD Consults: 10/18/16 15:58 Consult to Physician [CONS] Routine Comment: severe hypertension with proteinuria Consulting Provider: Sameer So Jr. 10/20/16 11:16 Consult to Physician [CONS] Routine Comment: fever, rhabdo Consulting Provider: Mable Hall When should Consulting Provider be notified: In am Person Notified: Soila Date Notified: 10/21/16 Time Notified: 09:10 Discharging clinician: Gwendolyn Santos NP <Kellie Matias - Last Filed: 10/23/16 12:24> Hospital Course - Time spent with patient Time with patient DS: Greater than 30 minutes Discharge Plan - Discharge Data Condition at Discharge: Stable Discharge Diet: advance to your usual diet, low salt diet Activity: resume usual activities as tolerated Hygiene: no restrictions Weight Bearing at Discharge: full weight bearing Contact your physician if you experience:: fever over 101 Exam - Constitutional Exam: General: No Acute Distress HEENT: Normocephalic, atraumatic, Extra ocular movements intact Neck: Supple, No JVD Chest: Clear to auscultation B/L CV: S1 + S2 audible without murmur, gallop or rub Abd: soft, NT, Non-distended, BS + Ext: No edema Skin: No purpura, bruising or rash Rheumatologic: No Joint deformities Neurologic: Strength 5/5 all extremities, no gross sensory deficits
== END 2016-10-23 13:56 | disposition home or self-care (01) | DRG 557 ==
LOC: N.ED 10:26 → SUATTDRO 14:39 → N.EDINP 14:39 → N.ICU 15:45 → N.5E 10-19 18:33
PROVIDERS: ADMIT Internal Medicine; ATTEND Hospitalist

== ENCOUNTER 2021-08-28 05:55 | Inpatient (IN) ==
[2021-08-28] MEDS ORDERED: propofoL 200 MG/20 ML VIAL IV ONE ×2 (06:21→08:20)
[2021-08-28] MEDS ORDERED: fentaNYL 100 MCG/2 ML VIAL ONE ×2 (06:21→08:49)
[2021-08-28] MEDS ORDERED: LIDOCAINE 2% 5 ML VIAL ONE (06:21)
[2021-08-28] MEDS ORDERED: ROCURONIUM 50 MG/5 ML VIAL IV ONE ×2 (06:21→08:46)
[2021-08-28] MEDS ORDERED: MIDAZOLAM 2 MG/2 ML VIAL ONE (06:21)
[2021-08-28] MEDS ORDERED: cefTRIAXone 1,000 MG in SODIUM CHLORIDE 0.9% 100 ML IV ONE (06:30)
[2021-08-28] MEDS ORDERED: ALVIMOPAN 12 MG CAPSULE PO ONE (06:30)
[2021-08-28] MEDS ORDERED: BUPIVACAINE MPF 0.5% 30 ML VIAL ONE (06:32)
[2021-08-28] MEDS ORDERED: LIDOCAINE 1% 5 ML VIAL ONE (06:32)
[2021-08-28] MEDS ORDERED: ROPIVACAINE 0.5% 30 ML VIAL ONE (06:46)
[2021-08-28] MEDS ORDERED: LACTATED RINGERS 1,000 ML IV SCH (07:00)
[2021-08-28] MEDS ORDERED: SEVOFLURANE 1 UNIT/15 MINUTE INH ONE (08:07)
[2021-08-28] MEDS ORDERED: GLYCOPYRROLATE 0.4 MG/2 ML VIAL ONE ×2 (08:07→09:07)
[2021-08-28] MEDS ORDERED: PHENYLEPHRINE 1 MG/10 ML SYRINGE IV ONE (08:18)
[2021-08-28 08:20] LABS: Bacteria,Urine Occasional /HPF (Few); Bilirubin,Urine Negative (Negative); Blood, Urine Trace mg/dL (Negative); Glucose,Urine (UA) Negative (Negative); Ketones,Urine Negative (Negative); Nitrite,Urine Negative (Negative); Protein,Urine Negative (Negative); RBC,Urine 4 /HPF (0-4); Squamous Epithelial Cell,Urine Occasional /HPF (0-10); Urine Appearance Clear (Clear); Urine Color Yellow (Yellow); Urine Specific Gravity 1.025 (1.001-1.035)
[2021-08-28] MEDS ORDERED: LACTATED RINGERS 1,000 ML IV ONE (08:28)
[2021-08-28] MEDS ORDERED: NEOSTIGMINE 10 MG/10 ML VIAL ONE (09:06)
[2021-08-28] MEDS ORDERED: ONDANSETRON 4 MG/2 ML VIAL ONE (09:15)
[2021-08-28] MEDS ORDERED: DESFLURANE 1 UNIT/15 MINUTE INH ONE (09:22)
[2021-08-28] MEDS ORDERED: ONDANSETRON 4 MG/2 ML VIAL IV PRN ×2 (09:57→10:22)
[2021-08-28] MEDS ORDERED: HYDROmorphone 1 MG/1 ML SYRINGE IV PRN ×2 (09:57→10:22)
[2021-08-28] MEDS ORDERED: PROMETHAZINE 25 MG/1 ML VIAL IM PRN (09:57)
[2021-08-28] MEDS ORDERED: oxyCODONE/ACETAMINOPHEN 5-325 MG TABLET PO PRN (09:57)
[2021-08-28] MEDS ORDERED: SIMETHICONE CHEW 125 MG TABLET PO PRN (09:57)
[2021-08-28] MEDS ORDERED: diphenhydrAMINE 50 MG/1 ML VIAL IV PRN ×2 (09:57→10:22)
[2021-08-28] MEDS ORDERED: GLUCAGON 1 MG VIAL IM PRN (10:01)
[2021-08-28] MEDS ORDERED: DEXTROSE 10% 250 ML BAG IV PRN (10:01)
[2021-08-28] MEDS ORDERED: PROMETHAZINE INJ 25 MG in SODIUM CHLORIDE 0.9% 50 ML IV PRN (10:22)
[2021-08-28] MEDS ORDERED: MEPERIDINE 25 MG/1 ML VIAL IV PRN (10:22)
[2021-08-28] MEDS: cefTRIAXone 1,000 MG in SODIUM CHLORIDE 0.9% 100 ML IV SCH (10:36)
[2021-08-28] MEDS: ACETAMINOPHEN 325 MG TABLET PO SCH ×3 (10:37→21:08)
[2021-08-28] MEDS: SODIUM CHLORIDE 0.9% 1,000 ML IV SCH ×2 (10:42→20:28)
[2021-08-28 10:53] LABS: Basophils % 0.4 % (0.0-0.8); Eosinophils # 0.1 10*3/uL (0.0-0.87); Eosinophils % 0.8 % (0.00-10.9); Hematocrit 35.7 VOL% (42.0-52.0); Hemoglobin 10.7 GM/DL (14.0-18.0); Immature Granulocytes % 0.4 %; Immature Granulocytes Absolute 0.04 #; Lymphocytes # 1.7 10*3/uL (1.4-4.0); Lymphocytes % 15.6 % (21.2-54.2); Mean Corpuscular Volume 68.8 FL (87-102); Mean Platelet Volume 10.2 FL (9.6-12.0); Monocytes # 0.7 10*3/uL (0.11-0.8); Monocytes % 6.2 % (1.7-12.7); Neutrophils % 76.6 % (38.7-73.9); Platelet Count 196 T/CUMM (130-400); Red Blood Count 5.19 MC/CUMM (3.8-5.5); Red Cell Distribution Width 15.7 % (9.3-17.3)
[2021-08-28 11:12] LABS: Calcium 8.8 MG/DL (8.5-10.1); Osmolality,Calculated 284.8 MOS/KG (273-304); Potassium 4.9 MMOL/L (3.5-5.1)
[2021-08-28] MEDS: INSULIN REGULAR 100 UNIT/ML SUBCUT SCH ×3 (12:35→20:27)
[2021-08-28] MEDS ORDERED: MAGNESIUM SULF RIDER 4 GM/100 ML PREMIX IV PRN (13:40)
[2021-08-28] MEDS ORDERED: MAGNESIUM SULF RIDER 2 GM/50 ML PREMIX IV PRN (13:40)
[2021-08-28] MEDS ORDERED: guaiFENesin 200 MG/10 ML UDCUP PO PRN (15:17)
[2021-08-28 16:08] LABS: Hematocrit 33.8 VOL% (42.0-52.0); Hemoglobin 10.4 GM/DL (14.0-18.0)
[2021-08-28] MEDS: ALVIMOPAN 12 MG CAPSULE PO SCH (20:28)
[2021-08-28] MEDS: DOCUSATE SODIUM 100 MG CAPSULE PO SCH (20:28)
[2021-08-29 00:30] LABS: Hematocrit 32.8 VOL% (42.0-52.0); Hemoglobin 10.1 GM/DL (14.0-18.0)
[2021-08-29] MEDS: ACETAMINOPHEN 325 MG TABLET PO SCH ×4 (03:16→21:03)
[2021-08-29 06:13] LABS: Basophils % 0.3 % (0.0-0.8); Eosinophils # 0.1 10*3/uL (0.0-0.87); Eosinophils % 1.5 % (0.00-10.9); Hematocrit 33.2 VOL% (42.0-52.0); Hemoglobin 10.2 GM/DL (14.0-18.0); Immature Granulocytes % 0.4 %; Immature Granulocytes Absolute 0.04 #; Lymphocytes # 1.4 10*3/uL (1.4-4.0); Lymphocytes % 15.3 % (21.2-54.2); Mean Corpuscular HGB Conc 30.7 GM/DL (32-36); Mean Corpuscular Volume 68.2 FL (87-102); Mean Platelet Volume 11.3 FL (9.6-12.0); Monocytes % 11.4 % (1.7-12.7); Neutrophils % 71.1 % (38.7-73.9); Platelet Count 197 T/CUMM (130-400); Red Blood Count 4.87 MC/CUMM (3.8-5.5); Red Cell Distribution Width 15.6 % (9.3-17.3)
[2021-08-29 06:28] LABS: % Iron Saturation 20.5 % (18-50)
[2021-08-29 06:29] LABS: Calcium 8.9 MG/DL (8.5-10.1); Osmolality,Calculated 277.8 MOS/KG (273-304); Potassium 4.1 MMOL/L (3.5-5.1)
[2021-08-29 06:42] LABS: Risk Ratio 3.36; Thyroid Stimulating Hormone 0.627 uIU/ml (0.358-3.74); VLDL Cholesterol 26.4 MG/DL
[2021-08-29 06:44] LABS: Folate 5.16 NG/ML (5.38-24.0)
[2021-08-29] MEDS: INSULIN REGULAR 100 UNIT/ML SUBCUT SCH ×4 (07:35→21:11)
[2021-08-29] MEDS: ALVIMOPAN 12 MG CAPSULE PO SCH ×2 (08:12→21:04)
[2021-08-29] MEDS: DOCUSATE SODIUM 100 MG CAPSULE PO SCH ×2 (08:13→21:04)
[2021-08-29] MEDS: BISOPROLOL 5 MG TABLET PO SCH (08:13)
[2021-08-29] MEDS: amLODIPine 10 MG TABLET PO SCH (08:13)
[2021-08-29] MEDS: cefTRIAXone 1,000 MG in SODIUM CHLORIDE 0.9% 100 ML IV SCH (09:28)
[2021-08-29] MEDS: FERROUS SULFATE 325 MG TABLET PO SCH (16:23)
[2021-08-29] MEDS ORDERED: FOLIC ACID 1 MG TABLET PO SCH (21:00)
[2021-08-30] MEDS: ACETAMINOPHEN 325 MG TABLET PO SCH ×2 (04:17→09:01)
[2021-08-30 06:05] LABS: Basophils % 0.3 % (0.0-0.8); Eosinophils # 0.2 10*3/uL (0.0-0.87); Eosinophils % 2.1 % (0.00-10.9); Hematocrit 35.9 VOL% (42.0-52.0); Immature Granulocytes % 0.4 %; Immature Granulocytes Absolute 0.04 #; Lymphocytes # 1.5 10*3/uL (1.4-4.0); Lymphocytes % 16.4 % (21.2-54.2); Mean Corpuscular HGB Conc 30.6 GM/DL (32-36); Mean Corpuscular Volume 67.7 FL (87-102); Mean Platelet Volume 11.3 FL (9.6-12.0); Neutrophils % 69.8 % (38.7-73.9); Platelet Count 189 T/CUMM (130-400); Red Cell Distribution Width 15.4 % (9.3-17.3); White Blood Count 9.2 T/CUMM (4-12)
[2021-08-30] MEDS: SODIUM CHLORIDE 0.9% 1,000 ML IV SCH (06:17)
[2021-08-30 06:24] LABS: Calcium 9.4 MG/DL (8.5-10.1); Osmolality,Calculated 273.1 MOS/KG (273-304); Potassium 4.4 MMOL/L (3.5-5.1)
[2021-08-30 06:25] LABS: Calcium 9.2 MG/DL (8.5-10.1); Potassium 4.2 MMOL/L (3.5-5.1)
[2021-08-30 06:34] LABS: Hypochromia 1+; Microcytosis 1+
[2021-08-30 06:35] LABS: Platelet Estimate Normal
[2021-08-30] MEDS: INSULIN REGULAR 100 UNIT/ML SUBCUT SCH ×2 (07:51→11:24)
[2021-08-30] MEDS ORDERED: CHOLECALCIFEROL 1,000 UNIT TABLET PO SCH (09:00)
[2021-08-30] MEDS ORDERED: CHOLECALCIFEROL 5,000 UNIT TABLET PO SCH (09:00)
[2021-08-30] MEDS: amLODIPine 10 MG TABLET PO SCH (09:01)
[2021-08-30] MEDS: DOCUSATE SODIUM 100 MG CAPSULE PO SCH (09:01)
[2021-08-30] MEDS: ALVIMOPAN 12 MG CAPSULE PO SCH (09:01)
[2021-08-30] MEDS: FERROUS SULFATE 325 MG TABLET PO SCH (09:01)
[2021-08-30] MEDS: BISOPROLOL 5 MG TABLET PO SCH (09:05)
[2021-08-30] MEDS: cefTRIAXone 1,000 MG in SODIUM CHLORIDE 0.9% 100 ML IV SCH (09:06)
[2021-08-30 16:03] VITALS: BP 136/82
== END 2021-08-30 16:16 | disposition home or self-care (01) | DRG 658 ==
LOC: N.OR 05:55 → N.SDSINP 05:56 → N.3E 11:16
PROVIDERS: ADMIT Surgery; ATTEND Surgery